=== PATIENT | male | born 1945 | race Caucasian/White ===

== ENCOUNTER 2017-09-07 16:15 | Observation (INO) | payer OTHER ==
[~2017-09-07] VITALS: Ht 190.5 cm; Wt 110.0 kg
[2017-09-07 16:39] VITALS: BP 125/58; PULSE 60; RESP 17; O2SAT 98
[2017-09-07] MEDS ORDERED: SODIUM CHLORIDE 0.9% FLUSH 10 ML FLUSH IVF PRN (17:00)
[2017-09-07] MEDS ORDERED: ASPIRIN 325 MG TAB PO ONE (17:00)
--- NOTE | 2017-09-07 17:00 | PD ---
HPI Chief Complaint: Chest Pain Time Seen by Provider: 16:57 Travel History International Travel<30 days: No Contact w/Intl Traveler<30days: No Traveled to known affect area: No History of Present Illness HPI 71-year-old male presents to the ED via EMS for evaluation of left-sided chest discomfort. Onset around noon yesterday. Patient states "I hate my own cooking and I think I have a gas." He denies associated palpitations, shortness of breath, nausea, vomiting, diaphoresis. States that the pain has been constant, no alleviating or exacerbating factors reported. He states that this morning he felt like the pain was diminished [facility] No pain on presentation. He was administered an aspirin and brought to the ED. He endorses several first-degree family members with DC but cannot recall the details. He smokes marijuana daily. He is a lifelong non- smoker. No treatment attempted at home. PFSH Past Medical History Arthritis: Yes Depression: Yes Diminished Hearing: No Medical other: Yes (glaucoma) ?: Not Social History Alcohol Use: Yes (WEEKLY) Tobacco Use: No Substance Use: No Allergies-Medications (Allergen,Severity, Reaction): Coded Allergies: Penicillins (Verified Allergy, Unknown, 09/07/17) Reported Meds & Prescriptions Reported Meds & Active Scripts Active Reported [place]-3 Fish Oil/Vitamin (Fish Oil-Cholecalciferol) 1,000-1,000 Mg Cap 1 Cap PO DAILY Timolol Opth Drops 0.5 % Soln 1 Drop EACH EYE DAILY Latanoprost Opth Drops (Latanoprost) 0.005% Drops 1 Drop EACH EYE HS Refrigerate until opened. Simvastatin 20 Mg Tab 20 Mg PO DAILY Sertraline (Sertraline HCl) 100 Mg Tab 100 Mg PO DAILY Meloxicam 7.5 Mg Tab 7.5 Mg PO DAILY Claritin (Loratadine) 10 Mg Cap 10 Mg PO DAILY Diclo Gel Topical (Diclofenac Sodium) 1% Gel 1 Applic TOPICAL BID Review of Systems Except as stated in HPI: all other systems reviewed are Neg Physical Exam Narrative GENERAL: Pleasant, jovial white male in no acute distress. SKIN: Focused skin assessment warm/dry. HEAD: Atraumatic. Normocephalic. EYES: Pupils equal and round. No scleral icterus. No injection or drainage. ENT: No nasal bleeding or discharge. Mucous membranes pink and moist. NECK: Trachea midline. No JVD. CARDIOVASCULAR: Regular rate and rhythm. No murmur appreciated. CHEST: Nontender throughout without deformity or crepitus. No retractions or use of accessory muscles. RESPIRATORY: No accessory muscle use. Clear to auscultation. Breath sounds equal bilaterally. GASTROINTESTINAL: Abdomen soft, non-tender, nondistended. Hepatic and splenic margins not palpable. MUSCULOSKELETAL: No obvious deformities. No clubbing. No cyanosis. No edema. NEUROLOGICAL: Awake and alert. No obvious cranial nerve deficits. Motor grossly within normal limits. Normal speech. PSYCHIATRIC: Appropriate mood and affect; insight and judgment normal. Data Data Last Documented VS Vital Signs Date Time Temp Pulse Resp B/P (MAP) Pulse Ox O2 Delivery O2 Flow Rate FiO2 09/07/17 17:11 98 Room Air 09/07/17 16:39 60 17 125/58 (80) Orders Orders Electrocardiogram (09/07/17 ) Electrocardiogram (09/07/17 16:49) Basic Metabolic Panel (Bmp) (09/07/17 16:49) Ckmb (Isoenzyme) Profile (09/07/17 16:49) Complete Blood Count With Diff (09/07/17 16:49) Comprehensive Metabolic Panel (09/07/17 16:49) Magnesium (Mg) (09/07/17 16:49) Prothrombin Time / Inr (Pt) (09/07/17 16:49) Act Partial Throm Time (Ptt) (09/07/17 16:49) Troponin I (09/07/17 16:49) Ecg Monitoring (09/07/17 16:49) Bilateral Bp Monitoring (09/07/17 16:49) Iv Access Insert/Monitor (09/07/17 16:49) Oximetry (09/07/17 16:49) Oxygen Administration (09/07/17 16:49) Sodium Chloride 0.9% Flush (Ns Flush) (09/07/17 17:00) Chest, Pa & Lat (09/07/17 16:49) CKMB (09/07/17 17:05) CKMB% (09/07/17 17:05) Admit Order (Ed Use Only) (09/07/17 17:57) Place In Observation (09/07/17 17:57) Activity Bed Rest With Brp (09/07/17 17:57) Vital Signs (Adult) Q4H (09/07/17 17:57) Cardiac Rhythm .As Directed (09/07/17 17:57) Notify Dr: Other .PRN (09/07/17 17:57) Notify DrRichard Parameters (09/07/17 17:57) Resp Oxygen Nasal Cannula (09/07/17 ) Ckmb (Isoenzyme) Profile (09/07/17 17:57) Ckmb (Isoenzyme) Profile (09/07/17 20:57) Troponin I (09/07/17 17:57) Troponin I (09/07/17 20:57) Electrocardiogram (09/07/17 17:57) Electrocardiogram (09/07/17 20:57) ^ Obtain (09/07/17 17:57) Sodium Chloride 0.9% Flush (Ns Flush) (09/07/17 18:00) Sodium Chloride 0.9% Flush (Ns Flush) (09/07/17 21:00) Framer / Telemetry KRYSTAL.Q8H (09/07/17 17:57) Diet Heart Healthy (09/07/17 Dinner) NPO (09/07/17 23:59) Labs Laboratory Tests Test 09/07/17 17:05 White Blood Count 4.6 TH/MM3 Red Blood Count 4.46 MIL/MM3 Hemoglobin 13.6 GM/DL Hematocrit 40.5 % Mean Corpuscular Volume 90.8 FL Mean Corpuscular Hemoglobin 30.4 PG Mean Corpuscular Hemoglobin Concent 33.5 % Red Cell Distribution Width 14.0 % Platelet Count 211 TH/MM3 Mean Platelet Volume 7.9 FL Neutrophils (%) (Auto) 45.0 % Lymphocytes (%) (Auto) 38.4 % Monocytes (%) (Auto) 11.9 % Eosinophils (%) (Auto) 2.6 % Basophils (%) (Auto) 2.1 % Neutrophils # (Auto) 2.1 TH/MM3 Lymphocytes # (Auto) 1.8 TH/MM3 Monocytes # (Auto) 0.5 TH/MM3 Eosinophils # (Auto) 0.1 TH/MM3 Basophils # (Auto) 0.1 TH/MM3 CBC Comment DIFF FINAL Differential Comment Prothrombin Time 10.1 SEC Prothromb Time International Ratio 1.0 RATIO Activated Partial Thromboplast Time 25.0 SEC Blood Urea Nitrogen 16 MG/DL Creatinine 0.99 MG/DL Random Glucose 92 MG/DL Total Protein 7.0 GM/DL Albumin 4.0 GM/DL Calcium Level 8.5 MG/DL Magnesium Level 2.7 MG/DL Alkaline Phosphatase 77 U/L Aspartate Amino Transf (AST/SGOT) 16 U/L Alanine Aminotransferase (ALT/SGPT) 23 U/L Total Bilirubin 0.6 MG/DL Sodium Level 138 MEQ/L Potassium Level 4.0 MEQ/L Chloride Level 106 MEQ/L Carbon Dioxide Level 20.6 MEQ/L Anion Gap 11 MEQ/L Estimat Glomerular Filtration Rate 74 ML/MIN Total Creatine Kinase 116 U/L Troponin I LESS THAN 0.02 NG/ML MDM Medical Decision Making Medical Screen Exam Complete: Yes Emergency Medical Condition: Yes Differential Diagnosis GERD versus angina versus musculoskeletal pain versus less likely ACS versus CAD versus other Narrative Course 71-year-old male presents the ED for evaluation of chest pain. Onset at noon yesterday. Vitals reviewed. Physical exam is reassuring. Patient was administered aspirin at the SD prior to arrival. EKG rate 54, sinus bradycardia. UT interval 183, QRS 101, QTc 419 ms. Normal axis. No acute ST changes. Reviewed by Dr. Riggs. CXR: Negative exam per radiology read. Cardiac enzymes: Negative 1 No concerning abnormalities of the CBC, CMP, UA. INR within normal limits. I discussed the results of the workup with the patient as well as recommendation for further evaluation the chest pain center. He is agreeable to care plan. Please see chest pain center notes for disposition. Diagnosis Primary Impression: Chest pain Qualified Codes: R07.9 - Chest pain, unspecified Yulisa Rodriguez Sep 07, 2017 17:00
[2017-09-07] MEDS ORDERED: SERT-129 PO (17:16)
[2017-09-07] MEDS ORDERED: OMEGCAP PO (17:16)
[2017-09-07] MEDS ORDERED: DICL1KIT5 TOPICAL (17:16)
[2017-09-07] MEDS ORDERED: TIMO0.5S30 EACH EYE (17:16)
[2017-09-07] MEDS ORDERED: LATA0.002 EACH EYE (17:16)
[2017-09-07] MEDS ORDERED: SIMV20TA PO (17:16)
[2017-09-07] MEDS ORDERED: MELO7.5T27 PO (17:16)
[2017-09-07] MEDS ORDERED: CLAR10CA3 PO (17:16)
--- NOTE | 2017-09-07 17:25 | RADRPT ---
EXAM DATE: 09/07/2017 5:22 PM EDT AGE/SEX: 71 years / Male INDICATIONS: Pain in chest. CLINICAL DATA: This is the patient's initial encounter. Patient reports that signs and symptoms have been present for 1 day and indicates a pain score of 4/10. MEDICAL/SURGICAL HISTORY: None. None. COMPARISON: No prior [facility] exams available for comparison. FINDINGS: PA and lateral views of the chest demonstrate the lungs to be symmetrically aerated without evidence of mass, infiltrate or effusion. The cardiomediastinal contours are unremarkable. Osseous structures are intact. CONCLUSION: Negative examination. Electronically signed by: Arnol Mann MD 09/07/2017 5:24 PM EDT
[2017-09-07 17:31] LABS: AUTOMATED NEUTROPHIL # 2.1 TH/MM3 (1.8-7.7); BASOPHIL # 0.1 TH/MM3 (0-0.2); BASOPHIL % 2.1 % (0.0-2.0); EOSINOPHIL # 0.1 TH/MM3 (0-0.4); EOSINOPHIL % 2.6 % (0.0-4.0); HEMATOCRIT 40.5 % (39.0-51.0); HEMOGLOBIN 13.6 GM/DL (13.0-17.0); LYMPH % 38.4 % (9.0-44.0); LYMPHOCYTE # 1.8 TH/MM3 (1.0-4.8); MEAN CELL VOLUME 90.8 FL (80.0-100.0); MEAN CORPUSCULAR HEMOGLOBIN 30.4 PG (27.0-34.0); MEAN CORPUSCULAR HGB CONC 33.5 % (32.0-36.0); MEAN PLATELET VOLUME 7.9 FL (7.0-11.0); MONO % 11.9 % (0.0-8.0); MONOCYTE # 0.5 TH/MM3 (0-0.9); PLATELET COUNT 211 TH/MM3 (150-450); RED BLOOD COUNT 4.46 MIL/MM3 (4.50-5.90); WHITE BLOOD COUNT 4.6 TH/MM3 (4.0-11.0)
[2017-09-07 17:49] LABS: AST (GOT) 16 U/L (15-37); BICARBONATE 20.6 MEQ/L (21.0-32.0); BLOOD UREA NITROGEN 16 MG/DL (7-18); CALCIUM 8.5 MG/DL (8.5-10.1); CHLORIDE 106 MEQ/L (98-107); CREATININE 0.99 MG/DL (0.60-1.30); GLOMERULAR FILTRATION RATE 74 ML/MIN (>89); GLUCOSE,RANDOM 92 MG/DL (74-106); MAGNESIUM 2.7 MG/DL (1.5-2.5); SODIUM (NA) 138 MEQ/L (136-145)
[2017-09-07 17:51] LABS: ALT (GPT) 23 U/L (12-78); PROTHROMBIN TIME - PATIENT 10.1 SEC (9.8-11.6)
[2017-09-07 17:54] LABS: ALKALINE PHOSPHATASE 77 U/L (45-117); TOTAL BILIRUBIN ADULT 0.6 MG/DL (0.2-1.0); TROPONIN I LESS THAN 0.02 NG/ML (0.02-0.05)
[2017-09-07] MEDS ORDERED: SODIUM CHLORIDE 0.9% FLUSH 10 ML FLUSH IV FLUSH PRN (18:00)
--- NOTE | 2017-09-07 18:11 | PD ---
Physical Exam Narrative GENERAL: 71-year-old male in no apparent distress SKIN: Focused skin assessment warm/dry. HEAD: Atraumatic. Normocephalic. EYES: Pupils equal and round. No scleral icterus. No injection or drainage. ENT: No nasal bleeding or discharge. Mucous membranes pink and moist. NECK: Trachea midline. No JVD. CARDIOVASCULAR: Regular rate and rhythm. RESPIRATORY: No accessory muscle use. No increased effort MUSCULOSKELETAL: No obvious deformities. No clubbing. No cyanosis. NEUROLOGICAL: Awake and alert. No obvious cranial nerve deficits. Motor grossly within normal limits. Normal speech. PSYCHIATRIC: Appropriate mood and affect; insight and judgment normal. Data Data Last Documented VS Vital Signs Date Time Temp Pulse Resp B/P (MAP) Pulse Ox O2 Delivery O2 Flow Rate FiO2 09/07/17 17:11 98 Room Air 09/07/17 16:39 60 17 125/58 (80) Orders Orders Electrocardiogram (09/07/17 ) Electrocardiogram (09/07/17 16:49) Basic Metabolic Panel (Bmp) (09/07/17 16:49) Ckmb (Isoenzyme) Profile (09/07/17 16:49) Complete Blood Count With Diff (09/07/17 16:49) Comprehensive Metabolic Panel (09/07/17 16:49) Magnesium (Mg) (09/07/17 16:49) Prothrombin Time / Inr (Pt) (09/07/17 16:49) Act Partial Throm Time (Ptt) (09/07/17 16:49) Troponin I (09/07/17 16:49) Ecg Monitoring (09/07/17 16:49) Bilateral Bp Monitoring (09/07/17 16:49) Iv Access Insert/Monitor (09/07/17 16:49) Oximetry (09/07/17 16:49) Oxygen Administration (09/07/17 16:49) Sodium Chloride 0.9% Flush (Ns Flush) (09/07/17 17:00) Chest, Pa & Lat (09/07/17 16:49) CKMB (09/07/17 17:05) CKMB% (09/07/17 17:05) Admit Order (Ed Use Only) (09/07/17 17:57) Place In Observation (09/07/17 17:57) Activity Bed Rest With Brp (09/07/17 17:57) Vital Signs (Adult) Q4H (09/07/17 17:57) Cardiac Rhythm .As Directed (09/07/17 17:57) Notify Dr: Other .PRN (09/07/17 17:57) Notify DrRichard Parameters (09/07/17 17:57) Resp Oxygen Nasal Cannula (09/07/17 ) Ckmb (Isoenzyme) Profile (09/07/17 17:57) Ckmb (Isoenzyme) Profile (09/07/17 20:57) Troponin I (09/07/17 17:57) Troponin I (09/07/17 20:57) Electrocardiogram (09/07/17 17:57) Electrocardiogram (09/07/17 20:57) ^ Obtain (09/07/17 17:57) Sodium Chloride 0.9% Flush (Ns Flush) (09/07/17 18:00) Sodium Chloride 0.9% Flush (Ns Flush) (09/07/17 21:00) Waste And Batting Waste Chopper / Telemetry KRYSTAL.Q8H (09/07/17 17:57) Labs Laboratory Tests Test 09/07/17 17:05 White Blood Count 4.6 TH/MM3 Red Blood Count 4.46 MIL/MM3 Hemoglobin 13.6 GM/DL Hematocrit 40.5 % Mean Corpuscular Volume 90.8 FL Mean Corpuscular Hemoglobin 30.4 PG Mean Corpuscular Hemoglobin Concent 33.5 % Red Cell Distribution Width 14.0 % Platelet Count 211 TH/MM3 Mean Platelet Volume 7.9 FL Neutrophils (%) (Auto) 45.0 % Lymphocytes (%) (Auto) 38.4 % Monocytes (%) (Auto) 11.9 % Eosinophils (%) (Auto) 2.6 % Basophils (%) (Auto) 2.1 % Neutrophils # (Auto) 2.1 TH/MM3 Lymphocytes # (Auto) 1.8 TH/MM3 Monocytes # (Auto) 0.5 TH/MM3 Eosinophils # (Auto) 0.1 TH/MM3 Basophils # (Auto) 0.1 TH/MM3 CBC Comment DIFF FINAL Differential Comment Prothrombin Time 10.1 SEC Prothromb Time International Ratio 1.0 RATIO Activated Partial Thromboplast Time 25.0 SEC Blood Urea Nitrogen 16 MG/DL Creatinine 0.99 MG/DL Random Glucose 92 MG/DL Total Protein 7.0 GM/DL Albumin 4.0 GM/DL Calcium Level 8.5 MG/DL Magnesium Level 2.7 MG/DL Alkaline Phosphatase 77 U/L Aspartate Amino Transf (AST/SGOT) 16 U/L Alanine Aminotransferase (ALT/SGPT) 23 U/L Total Bilirubin 0.6 MG/DL Sodium Level 138 MEQ/L Potassium Level 4.0 MEQ/L Chloride Level 106 MEQ/L Carbon Dioxide Level 20.6 MEQ/L Anion Gap 11 MEQ/L Estimat Glomerular Filtration Rate 74 ML/MIN Total Creatine Kinase 116 U/L Creatine Kinase MB 1.1 NG/ML Troponin I LESS THAN 0.02 NG/ML MDM Supervised Visit with MARYSOL: Yes Interpretation(s) CBC & BMP Diagram 09/07/17 17:05 Total Protein 7.0, Albumin 4.0, Calcium Level 8.5, Magnesium Level 2.7 H, Alkaline Phosphatase 77, Aspartate Amino Transf (AST/SGOT) 16, Alanine Aminotransferase (ALT/SGPT) 23, Total Bilirubin 0.6 Last 24 hours Impressions Chest X-Ray 09/07/17 1649 Signed Impressions: CONCLUSION: Negative examination. Narrative Course I, Dr. chery, have reviewed the advance practice practitioner's documentation and am in agreement, met with the patient face to face, made the diagnosis, and the medical decision making was done by me. *My assessment and Findings: 71-year-old male presents with chest pain. Initial workup no acute. Will place and chest pain center observation Diagnosis Primary Impression: Chest pain Qualified Codes: R07.9 - Chest pain, unspecified Admitting Information Admitting Physician Requests: Observation Tonja Chery MD Sep 07, 2017 18:11
[2017-09-07 20:00] VITALS: BP 124/68; PULSE 67; RESP 20; TEMP 98; O2SAT 97
[2017-09-07] MEDS: SODIUM CHLORIDE 0.9% FLUSH 10 ML FLUSH IV FLUSH SCH (20:32)
[2017-09-07 22:19] LABS: TROPONIN I LESS THAN 0.02 NG/ML (0.02-0.05)
[2017-09-07] MEDS ORDERED: MORPHINE SULFATE 4 MG/ML INJ IV PRN (23:15)
[2017-09-08] VITALS: BP 114/58; PULSE 55; RESP 20; TEMP 98.2; O2SAT 97
[2017-09-08 00:52] LABS: TROPONIN I LESS THAN 0.02 NG/ML (0.02-0.05)
[2017-09-08 08:00] VITALS: BP 126/92; PULSE 62; PULSE 73; RESP 12; TEMP 98.3; O2SAT 94
--- NOTE | 2017-09-08 08:53 | HHI.HP ---
HPI Primary Care Physician [facility] [address] [facility] Chief Complaint Chest pain History of Present Illness This is a 71-year-old male history of hyperlipidemia the presents to ED with a complaint of developing a chest discomfort a couple days ago that was constant for 2 days. Found nothing to worsen or improve his symptoms. States the symptoms resolve somewhere along the line last evening and has not recurred. At times was short of breath. Really cannot recall being nauseous or diaphoretic. Denies having symptoms like this before. Cannot recall prior cardiac evaluation. He went to the [place] clinic yesterday for evaluation and was transported to the ED here via ambulance for further evaluation. Review of Systems General: Patient denies fevers, chills, and recent travel. HEENT: Patient denies headache, sore throat, difficulty swallowing. Cardiovascular: Has the chest discomfort as mentioned above. Denies sensation of heart beating rapidly or irregularly. No syncope. Denies diaphoresis. Respiratory: He was short of breath. Denies inspirational chest discomfort. Denies coughing wheezing or hemoptysis. GI: Patient denies nausea, vomiting, diarrhea, abdominal pain, bloody stools. Musculoskeletal: Patient denies joint pain or edema. Denies calf pain or edema. Neurovascular: Patient denies numbness, tingling, weakness in extremities. Denies headache. Endocrine: Denies polyuria and polydipsia. Hematologic: Denies easy bruising. Skin: Denies rash or itching. Past Family Social History Allergies: Coded Allergies: Penicillins (Verified Allergy, Unknown, 09/07/17) Past Medical History Hyperlipidemia, PTSD. Denies hypertension, diabetes, and known CAD. Past Surgical History Noncontributory. Reported Medications Reported Meds & Active Scripts Active Reported [place]-3 Fish Oil/Vitamin (Fish Oil-Cholecalciferol) 1,000-1,000 Mg Cap 1 Cap PO DAILY Timolol Opth Drops 0.5 % Soln 1 Drop EACH EYE DAILY Latanoprost Opth Drops (Latanoprost) 0.005% Drops 1 Drop EACH EYE HS Refrigerate until opened. Simvastatin 20 Mg Tab 20 Mg PO DAILY Sertraline (Sertraline HCl) 100 Mg Tab 100 Mg PO DAILY Meloxicam 7.5 Mg Tab 7.5 Mg PO DAILY Claritin (Loratadine) 10 Mg Cap 10 Mg PO DAILY Diclo Gel Topical (Diclofenac Sodium) 1% Gel 1 Applic TOPICAL BID Active Ordered Medications Current Medications Medications (Trade) Dose Ordered Sig/Didier Route Start Time Stop Time Status Last Admin (NS Flush) 2 ml UNSCH PRN IVF 09/07/17 17:00 (NS Flush) 2 ml UNSCH PRN IV FLUSH 09/07/17 18:00 (NS Flush) 2 ml BID IV FLUSH 09/07/17 21:00 (Morphine Inj) 4 mg Q4H PRN IV 09/07/17 23:15 Family History Not sure of his family cardiac history. Social History Smokes marijuana daily. Denies alcohol. Denies tobacco abuse. Physical Exam Vital Signs Vital Signs Date Time Temp Pulse Resp B/P (MAP) Pulse Ox O2 Delivery O2 Flow Rate FiO2 09/08/17 00:00 98.2 55 20 114/58 (76) 97 09/07/17 20:00 98.0 67 20 124/68 (86) 97 09/07/17 17:11 98 Room Air 09/07/17 16:39 60 17 125/58 (80) 98 Physical Exam GENERAL: This is a well-nourished, well-developed patient, in no apparent distress. Patient speaks in clear complete sentences. Patient is pleasant. HEENT: Head is atraumatic and normocephalic. Neck is supple without lymphadenopathy and trachea is midline. No JVD or carotid bruits. CARDIOVASCULAR: Regular rate and rhythm without murmurs, gallops, or rubs. RESPIRATORY: Clear to auscultation. Breath sounds equal bilaterally. No wheezes , rales, or rhonchi. Chest wall is nontender. No use of accessory muscles. GASTROINTESTINAL: Abdomen is nontender, nondistended. Abdomen soft. No obvious pulsatile mass or bruit. No CVA tenderness. Strong femoral pulses bilaterally. Normal bowel sounds in all quadrants. MUSCULOSKELETAL: Patient is moving upper and lower extremities freely. No calf tenderness or edema, no Homans sign. Strong pulses in upper and lower extremities. NEUROLOGICAL: Patient is alert and oriented. Cranial nerves 2-12 are grossly intact. No focal deficits and speech is clear. SKIN: No rash and turgor is normal. Laboratory Laboratory Tests Test 09/07/17 17:05 09/07/17 21:15 09/08/17 00:14 White Blood Count 4.6 Red Blood Count 4.46 Hemoglobin 13.6 Hematocrit 40.5 Mean Corpuscular Volume 90.8 Mean Corpuscular Hemoglobin 30.4 Mean Corpuscular Hemoglobin Concent 33.5 Red Cell Distribution Width 14.0 Platelet Count 211 Mean Platelet Volume 7.9 Neutrophils (%) (Auto) 45.0 Lymphocytes (%) (Auto) 38.4 Monocytes (%) (Auto) 11.9 Eosinophils (%) (Auto) 2.6 Basophils (%) (Auto) 2.1 Neutrophils # (Auto) 2.1 Lymphocytes # (Auto) 1.8 Monocytes # (Auto) 0.5 Eosinophils # (Auto) 0.1 Basophils # (Auto) 0.1 CBC Comment DIFF FINAL Differential Comment Prothrombin Time 10.1 Prothromb Time International Ratio 1.0 Activated Partial Thromboplast Time 25.0 Blood Urea Nitrogen 16 Creatinine 0.99 Random Glucose 92 Total Protein 7.0 Albumin 4.0 Calcium Level 8.5 Magnesium Level 2.7 Alkaline Phosphatase 77 Aspartate Amino Transf (AST/SGOT) 16 Alanine Aminotransferase (ALT/SGPT) 23 Total Bilirubin 0.6 Sodium Level 138 Potassium Level 4.0 Chloride Level 106 Carbon Dioxide Level 20.6 Anion Gap 11 Estimat Glomerular Filtration Rate 74 Total Creatine Kinase 116 111 107 Creatine Kinase MB 1.1 1.0 1.0 Troponin I LESS THAN 0.02 LESS THAN 0.02 LESS THAN 0.02 Result Diagram: 09/07/17 1705 09/07/17 1705 Imaging Last 48 hours Impressions Chest X-Ray 09/07/17 1649 Signed Impressions: CONCLUSION: Negative examination. Course EKGs are sinus rhythm sinus bradycardia without significant ST segment depressions or elevations. Caprini VTE Risk Assessment Caprini VTE Risk Assessment: Mod/High Risk (score >= 2) Caprini Risk Assessment Model Point Value = 1 Point Value = 2 Point Value = 3 Point Value = 5 Age 41-60 Minor surgery BMI > 25 kg/m2 Swollen legs Varicose veins or History of unexplained or recurrent spontaneous Oral contraceptives or hormone replacement Sepsis (< 1 month) Serious lung disease, including pneumonia (< 1 month) Abnormal pulmonary function Acute myocardial infarction Congestive heart failure (< 1 month) History of inflammatory bowel disease Medical patient at bed rest Age 61-74 Arthroscopic surgery Major open surgery (> 45 min) Laparoscopic surgery (> 45 min) Malignancy Confined to bed (> 72 hours) Immobilizing plaster cast Central venous access Age >= 75 History of VTE Family history of VTE Factor V Leiden Prothrombin [id number] Lupus anticoagulant Anticardiolipin antibodies Elevated serum homocysteine Heparin-induced thrombocytopenia Other congenital or acquired thrombophilia Stroke (< 1 month) Elective arthroplasty Hip, pelvis, or leg fracture Acute spinal cord injury (< 1 month) Prophylaxis Regimen Total Risk Factor Score Risk Level Prophylaxis Regimen 0-1 Low Early ambulation 2 Moderate Order ONE of the following: *Sequential Compression Device (SCD) *Heparin 5000 units SQ BID 3-4 Higher Order ONE of the following medications: *Heparin 5000 units SQ TID *Enoxaparin/Lovenox 40 mg SQ daily (WT < 150 kg, CrCl > 30 mL/min) *Enoxaparin/Lovenox 30 mg SQ daily (WT < 150 kg, CrCl > 10-29 mL/min) *Enoxaparin/Lovenox 30 mg SQ BID (WT < 150 kg, CrCl > 30 mL/min) AND/OR *Sequential Compression Device (SCD) 5 or more Highest Order ONE of the following medications: *Heparin 5000 units SQ TID (Preferred with Epidurals) *Enoxaparin/Lovenox 40 mg SQ daily (WT < 150 kg, CrCl > 30 mL/min) *Enoxaparin/Lovenox 30 mg SQ daily (WT < 150 kg, CrCl > 10-29 mL/min) *Enoxaparin/Lovenox 30 mg SQ BID (WT < 150 kg, CrCl > 30 mL/min) AND *Sequential Compression Device (SCD) Assessment and Plan Assessment and Plan * Chest pain: Patient has had serial cardiac enzymes and EKGs for ruling out purposes. He was seen by Dr. Louis Hale of cardiology in the chest pain center. He will undergo a Lexiscan. He will be discharged home if the stress test is nonischemic with instructions to follow-up with his PCP. Return to ED for interval issues. Patient is stable at this time. He is agreeable to this plan. Allen Powell Sep 08, 2017 08:53
[2017-09-08] MEDS ORDERED: PRAVASTATIN SOD 40 MG TAB PO SCH (09:00)
[2017-09-08] MEDS ORDERED: SERTRALINE HCL 100 MG TAB PO SCH (09:00)
[2017-09-08] MEDS: SODIUM CHLORIDE 0.9% FLUSH 10 ML FLUSH IV FLUSH SCH (09:00)
[2017-09-08] MEDS ORDERED: REGADENOSON INJ 0.4 MG/5 ML SYR ONE (11:10)
[2017-09-08 12:37] VITALS: BP 103/72; PULSE 63; RESP 14; TEMP 96.3; O2SAT 98
--- NOTE | 2017-09-08 13:05 | RADRPT ---
EXAM DATE: 09/08/2017 12:38 PM EDT AGE/SEX: 71 years / Male INDICATIONS:Angina. . Chest pain. CLINICAL DATA: This is the patient's initial encounter. Patient reports that signs and symptoms have been present for 1 day and indicates a pain score of 0/10. MEDICAL/SURGICAL HISTORY: Hypercholesterolemia. Rotator cuff, right. COMPARISON: No prior exams available for comparison. DOSE: 11.0 mCi Tc 99m Myoview at rest 35.0 mCi [id number] at stress 0.4 mg Lexiscan STRESS SYMPTOMS: Heart racing. EJECTION FRACTION: 57 % TECHNIQUE: The patient underwent pharmacologic stress with infusion of prescribed dose. Continuous ECG tracing was monitored during stress. Gated SPECT imaging was performed after stress and conventi onal SPECT imaging was performed at rest. The examination was performed on a SPECT/CT scanner, both attenuation and non-corrected datasets were reviewed. FINDINGS: Distribution: The maximum perfused segment at stress is in the inferior wall. Perfusion Study: There is mild decreased activity on the stress images at the apical portions of th e lateral and inferior bansal on the stress images compared to the rest images. The difference is in t he order of 10% and is likely within normal limits. No other potential mismatches are seen. Gated Study: There are intact wall motion and wall thickening without hypokinetic or dyskinetic segm ents. The ejection fraction is calculated at 57%. RISK CATEGORY: Low (<1% Annual Motality Rate) CONCLUSION: No definite areas of ischemia are seen. There is mild decreased activity in the order of 10% at the a pical portion of the lateral and inferior bansal which is likely within normal variability. Electronically signed by: Vahe Olmedo MD 09/08/2017 1:04 PM EDT
--- NOTE | 2017-09-08 13:38 | HHI.DCPOC ---
Discharge Care Plan Diagnosis: (1) Chest pain Goals to Promote Your Health * To prevent worsening of your condition and complications * To maintain your health at the optimal level Directions to Meet Your Goals Take your medications as prescribed Follow your dietary instruction Follow activity as directed Keep your appointments as scheduled Take your immunizations and boosters as scheduled If your symptoms worsen call your PCP, if no PCP go to Urgent Care Center or Emergency Room Smoking is Dangerous to Your Health. Avoid second hand smoke Call the 24-hour hour crisis hotline for domestic abuse at Allen Powell Sep 08, 2017 13:38
--- NOTE | 2017-09-08 14:33 | EKG ---
Date Performed: 09/08/2017 Time Performed: 00:03:16 PTAGE: 71 years EKG: SINUS BRADYCARDIA BORDERLINE ECG PREVIOUS TRACING : 09/07/2017 21.01 Since previous tracing, no significant change noted DOCTOR: Louis Hale Interpretating Date/Time 09/08/2017 14:31:45
--- NOTE | 2017-09-08 14:33 | EKG ---
Date Performed: 09/07/2017 Time Performed: 21:01:43 PTAGE: 71 years EKG: Sinus rhythm NORMAL ECG PREVIOUS TRACING : 09/07/2017 16.03 Since previous tracing, no significant change noted DOCTOR: Louis Hale Interpretating Date/Time 09/08/2017 14:32:24
--- NOTE | 2017-09-08 14:35 | EKG ---
Date Performed: 09/07/2017 Time Performed: 16:03:13 PTAGE: 71 years EKG: SINUS BRADYCARDIA BORDERLINE ECG PREVIOUS TRACING : 09/07/2017 15.22 Since previous tracing, no significant change noted DOCTOR: Louis Hale Interpretating Date/Time 09/08/2017 14:33:19
--- NOTE | 2017-09-08 14:35 | EKG ---
Date Performed: 09/07/2017 Time Performed: 15:22:15 PTAGE: 71 years EKG: Sinus rhythm NORMAL ECG INTERPRETATION BASED ON A DEFAULT AGE OF 40 YEARS NO PREVIOUS TRACING DOCTOR: Louis Hale Interpretating Date/Time 09/08/2017 14:33:31
--- NOTE | 2017-09-08 14:36 | TR ---
Date Performed: 09/08/2017 Time Performed: 11:02:37 DOCTOR: Louis Hale DRUG LIST: CLINICAL HISTORY: REASON FOR TEST: REASON FOR ENDING: OBSERVATION: CONCLUSION: COMMENTS: Lexiscan stress test was performed under standard four minute protocol. Radionuclide was injected one minute prior to ending the test. No electrocardiographic abormalities were present t o suggest ischemia. Nuclear imaging and interpretation are pending.
== END 2017-09-08 17:13 | disposition home or self-care (01) ==
LOC: NEPE 16:15 → NEDA 17:59 → NEPHCDU 19:19
PROVIDERS: ADMIT Internal Medicine Interventional Cardiology; ATTEND Internal Medicine Interventional Cardiology
DX: R07.89 Other chest pain (principal); E78.5 Hyperlipidemia, unspecified; R94.31 Abnormal electrocardiogram [ECG] [EKG]; F43.10 Post-traumatic stress disorder, unspecified; F12.90 Cannabis use, unspecified, uncomplicated
CPT/HCPCS: 71046; 78452; 80053; 82550; 82552; 83735; 84484; 85025; 85610; 85730; 93005; 93017; 99285; A9502; G0378; J2785